=== PATIENT | male | born 1965 | race Caucasian/White ===

== ENCOUNTER 2022-12-05 02:59 | Emergency (ER) | payer OTHER ==
[~2022-12-05] VITALS: Ht 177.8 cm; Wt 81.0 kg
[2022-12-05] MEDS ORDERED: ACETAMINOPHEN 325MG TABLET PO STA (03:51)
[2022-12-05 04:27] LABS: BASOPHILS % 0.5 % (0.0-2.0); EOSINOPHILS % 4.7 % (0.0-5.0); HEMATOCRIT. 43.3 % (42.0-52.0); HEMOGLOBIN. 15.1 g/dL (14.0-18.0); LYMPHOCYTES % 9.2 % (20.0-50.0); MEAN CORPUSCULAR HEMOGLOBIN 30.8 pg (28.0-32.0); MEAN CORPUSCULAR VOLUME 88.5 fL (80.0-94.0); MEAN PLATELET VOLUME 8.7 fl (7.4-10.4); MONOCYTES % 6.8 % (2.0-8.0); NEUTROPHILS % 78.8 % (40.0-76.0); PLATELET 212 x1000/uL (130-400); RED BLOOD CELL COUNT 4.89 mill/uL (4.7-6.1); RED CELL DISTRIBUTION WIDTH 12.3 % (11.6-14.6)
[2022-12-05 04:38] LABS: CHLORIDE 102 mEq/L (98-107)
[2022-12-05 04:45] LABS: INR 1.1; PROTHROMBIN TIME 11.5 sec (9.6-11.0)
[2022-12-05 04:56] LABS: CLARITY URINE CLEAR (CLEAR); COLOR URINE YELLOW (YELLOW); KETONES URINE 2+ (NEGATIVE); LEUKOCYTE ESTERASE URINE TRACE (NEGATIVE); NITRITE URINE NEGATIVE (NEGATIVE); OCCULT BLOOD URINE NEGATIVE (NEGATIVE); PH URINE 7.5 (4.5-8.0); PROTEIN URINE TRACE (NEGATIVE); SPECIFIC GRAVITY URINE 1.012 (1.005-1.030)
[2022-12-05 06:00] VITALS: BP 138/83
[2022-12-05] MEDS ORDERED: METH-653 MT (06:38)
== END 2022-12-05 07:16 | disposition home or self-care (01) ==
LOC: ER 02:59
DX: S29.019A Strain of muscle and tendon of unspecified wall of thorax, initial encounter (principal); J45.909 Unspecified asthma, uncomplicated; X58.XXXA Exposure to other specified factors, initial encounter; Y93.89 Activity, other specified; Y92.89 Other specified places as the place of occurrence of the external cause; Y99.8 Other external cause status
CPT/HCPCS: 36415; 71045; 80053; 81003; 84484; 85025; 93005; 99285